=== PATIENT | male | born 1975 | race Caucasian/White ===

== ENCOUNTER 2019-08-06 21:08 | Emergency (ER) | payer OTHER ==
[~2019-08-06] VITALS: Ht 177 cm; Wt 92.1 kg
[2019-08-06] MEDS ORDERED: NS IV 1000 ML 1,000 ML IV STA (21:36)
[2019-08-06] MEDS ORDERED: KETOROLAC 30 MG/ML VIAL IVP STA (21:36)
[2019-08-06] MEDS ORDERED: METOCLOPRAMIDE INJ 10 MG/2 ML (REGLAN) IVP STA (21:36)
--- NOTE | 2019-08-06 21:45 | ED Back Pain ---
General Chief Complaint: Back Problems Stated Complaint: PAIN LEFT ABD Nursing Triage Note: PT COMPLAINING OF LEFT FLANK PAIN SINCE 3PM TODAY. PT HAS A HX OF KIDNEY STONES Nursing Sepsis Screen: No Definite Risk History of Present Illness Date Seen by Provider: Aug 06, 2019 Time Seen by Provider: 21:25 Initial Comments 43-year-old male presents with left-sided flank pain since around 3:00 today. Patient reports she had a similar episode about a week ago and thought he had passed a kidney stone. Patient reports she has a history of kidney stones and the pain is very similar. He has some mild nausea. Patient denies any fever, chills. He has not tried anything for the pain today he does not have any abdominal pain, vomiting, chest pain or burning with urination. Allergies and Home Medications Allergies Coded Allergies: No Known Drug Allergies (Unverified , 08/06/19) Patient Home Medication List Home Medication List Reviewed: Yes Review of Systems Constitutional: No chills, No dizziness, No fever EENTM: no symptoms reported Respiratory: No cough, No short of breath Cardiovascular: No chest pain, No palpitations Gastrointestinal: No abdominal pain, No diarrhea, No vomiting Genitourinary: see HPI Musculoskeletal: see HPI Skin: no symptoms reported Past [id number] Hx Past Med/Social Hx: Reviewed Nursing Past Med/Soc Hx Patient Social History Alcohol Use: Denies Use Recreational Drug Use: No Smoking Status: Former Smoker Former Smoker, Quit: Mar 06, 2019 2nd Hand Smoke Exposure: No Recent Foreign Travel: No Contact w/Someone Who Travel: No Recent Infectious Disease Expo: No Recent Hopitalizations: No Physical Abuse: No Sexual Abuse: No Mistreated: No Fear: No Past Medical History Surgeries: No Respiratory: No Cardiac: Yes Hypertension Neurological: No Genitourinary: No Gastrointestinal: No Musculoskeletal: No Endocrine: No HEENT: No Cancer: No Psychosocial: No Integumentary: No Blood Disorders: No Physical Exam Vital Signs Vital Signs - First Documented 08/06/19 21:14 Temp 36.9 Pulse 87 Resp 18 B/P (MAP) 189/118 (141) Pulse Ox 98 O2 Delivery Room Air Capillary Refill : Less Than 3 Seconds Height, Weight, BMI Height: '" Weight: lbs. oz. 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 Norm as Tested Progress/Results/Core Measures Results/Orders Lab Results Laboratory Tests Test 08/06/19 21:30 08/06/19 22:20 Range/Units Urine Color YELLOW Urine Clarity CLEAR Urine pH 6.5 5-9 Urine Specific [place] <1.005 1.016-1.022 Urine Protein NEGATIVE NEGATIVE Urine Glucose (UA) NEGATIVE NEGATIVE Urine Ketones NEGATIVE NEGATIVE Urine Nitrite NEGATIVE NEGATIVE Urine Bilirubin NEGATIVE NEGATIVE Urine Urobilinogen 0.2 < = 1.0 MG/DL Urine Leukocyte Esterase NEGATIVE NEGATIVE Urine RBC (Auto) 2+ H NEGATIVE Urine RBC 5-10 H /HPF Urine WBC RARE /HPF Urine Squamous Epithelial Cells 0-2 /HPF Urine Crystals NONE /LPF Urine Bacteria NONE /HPF Urine Casts NONE /LPF Urine Mucus NEGATIVE /LPF Urine Culture Indicated NO White Blood Count 15.0 H 4.3-11.0 10^3/uL Red Blood Count 4.90 4.35-5.85 10^6/uL Hemoglobin 14.8 13.3-17.7 G/DL Hematocrit 43 40-54 % Mean Corpuscular Volume 88 80-99 FL Mean Corpuscular Hemoglobin 30 25-34 PG Mean Corpuscular Hemoglobin Concent 34 32-36 G/DL Red Cell Distribution Width 13.6 10.0-14.5 % Platelet Count 310 130-400 10^3/uL Mean Platelet Volume 10.0 7.4-10.4 FL Neutrophils (%) (Auto) 80 H 42-75 % Lymphocytes (%) (Auto) 13 12-44 % Monocytes (%) (Auto) 6 0-12 % Eosinophils (%) (Auto) 1 0-10 % Basophils (%) (Auto) 0 0-10 % Neutrophils # (Auto) 12.0 H 1.8-7.8 X 10^3 Lymphocytes # (Auto) 1.9 1.0-4.0 X 10^3 Monocytes # (Auto) 0.8 0.0-1.0 X 10^3 Eosinophils # (Auto) 0.1 0.0-0.3 10^3/uL Basophils # (Auto) 0.1 0.0-0.1 10^3/uL Neutrophils % (Manual) 79 % Lymphocytes % (Manual) 11 % Monocytes % (Manual) 7 % Eosinophils % (Manual) 1 % Basophils % (Manual) 0 % Band Neutrophils 2 % Blood Morphology Comment NORMAL Sodium Level 136 135-145 MMOL/L Potassium Level 3.7 3.6-5.0 MMOL/L Chloride Level 104 98-107 MMOL/L Carbon Dioxide Level 21 21-32 MMOL/L Anion Gap 11 5-14 MMOL/L Blood Urea Nitrogen 10 7-18 MG/DL Creatinine 0.93 0.60-1.30 MG/DL Estimat Glomerular Filtration Rate > 60 BUN/Creatinine Ratio 11 Glucose Level 112 H 70-105 MG/DL Calcium Level 9.2 8.5-10.1 MG/DL Corrected Calcium 9.0 8.5-10.1 MG/DL Total Bilirubin 0.3 0.1-1.0 MG/DL Aspartate Amino Transf (AST/SGOT) 14 5-34 U/L Alanine Aminotransferase (ALT/SGPT) 13 0-55 U/L Alkaline Phosphatase 67 40-136 U/L Total Protein 7.0 6.4-8.2 GM/DL Albumin 4.2 3.2-4.5 GM/DL My Orders Orders - RICKETTS,DREA L DO Abdomen (Kub) 1 View (08/06/19 21:36) Ed Iv/Invasive Line Start (08/06/19 21:36) Ketorolac Injection (Toradol Injection) (08/06/19 21:36) Cbc With Automated Diff (08/06/19 21:36) Comprehensive Metabolic Panel (08/06/19 21:36) Ua Culture If Indicated (08/06/19 21:36) Metoclopramide Injection (Reglan Injecti (08/06/19 21:36) Ns Iv 1000 Ml (Sodium Chloride 0.9%) (08/06/19 21:36) Manual Differential (08/06/19 22:20) Ct Abdomen/Pelvis W (08/06/19 22:38) Iohexol Injection (Omnipaque 350 Mg/Ml 1 (08/06/19 22:45) Received Contrast (Hold Metformin- Contr (08/06/19 22:45) Ns (Ivpb) (Sodium Chloride 0.9% Ivpb Bag (08/06/19 22:45) Sodium Chloride Flush (Catheter Flush Sy (08/06/19 22:45) Medications Given in ED Current Medications Medications Dose Ordered Sig/Ender Route Start Time Stop Time Status Last Admin Dose Admin Iohexol 100 ml ONCE ONCE IV 08/06/19 22:45 08/06/19 22:46 DC 08/06/19 23:10 100 ML Sodium Chloride 10 ml NEEDED PRN IV 08/06/19 22:45 08/06/19 23:10 10 ML Sodium Chloride 100 ml ONCE ONCE IV 08/06/19 22:45 08/06/19 22:46 DC 08/06/19 23:10 80 ML Vital Signs/I&O 08/06/19 21:14 Temp 36.9 Pulse 87 Resp 18 B/P (MAP) 189/118 (141) Pulse Ox 98 O2 Delivery Room Air Blood Pressure Mean: 141 POS Departure Impression Primary Impression: Kidney stone on left side Disposition: HOME, SELF-CARE Condition: Stable Departure-Patient Inst. Patient Instructions: Renal Colic (DC), How to Strain Your Urine, Kidney Stones in Adults Add. Discharge Instructions: follow up with urologist for further treatment, recheck of symptoms All discharge instructions reviewed with patient and/or family. Voiced understanding. DREA RICKETTS DO Aug 06, 2019 21:44 POS
[2019-08-06 21:48] LABS: BILIRUBIN,URINE NEGATIVE (NEGATIVE); CLARITY,URINE CLEAR; COLOR,URINE YELLOW; GLUCOSE, URINE (UA) NEGATIVE (NEGATIVE); KETONES,URINE NEGATIVE (NEGATIVE); LEUKOCYTE ESTERASE ,URINE NEGATIVE (NEGATIVE); NITRITE,URINE NEGATIVE (NEGATIVE); PH,URINE 6.5 (5-9); PROTEIN,URINE NEGATIVE (NEGATIVE); SQUAMOUS EPITHELIAL CELL,UR 0-2 /HPF; WBC,URINE RARE /HPF
--- NOTE | 2019-08-06 22:02 | Diagnostic Imaging Report ---
EXAMINATION: Abdominal radiographs, single view, 2 images. DATE: August 06, 2019. CLINICAL INDICATION: 43-year-old male, left flank pain. History of stones. COMPARISON: None available. COMMENTS: There is a calcification overlying the left kidney likely relating to a renal stone measuring 7 mm in size. There is no identified abnormal calcification projecting over the expected positions of the ureters. The upper abdomen is not completely imaged. There is no identified abnormally distended gas-filled segment of bowel. IMPRESSION: 1. 7 mm probable left renal stone. 2. No radiographically apparent ureteral stone. 3. Unremarkable bowel gas pattern. 4. The upper abdomen is incompletely imaged. Dictated by: Dictated on workstation # [id number]
[2019-08-06 22:31] LABS: HEMATOCRIT 43 % (40-54); HEMOGLOBIN 14.8 G/DL (13.3-17.7); MEAN CORPUSCULAR HEMOGLOBIN 30 PG (25-34); MEAN CORPUSCULAR HGB CONC 34 G/DL (32-36); MEAN CORPUSCULAR VOLUME 88 FL (80-99); PLATELET COUNT 310 10^3/uL (130-400); RED CELL DISTRIBUTION WIDTH 13.6 % (10.0-14.5)
[2019-08-06 22:32] LABS: BASOPHILS # (AUTO) 0.1 10^3/uL (0.0-0.1); BASOPHILS % (AUTO) 0 % (0-10); EOSINOPHILS # (AUTO) 0.1 10^3/uL (0.0-0.3); EOSINOPHILS % (AUTO) 1 % (0-10); LYMPHOCYTES # (AUTO) 1.9 X 10^3 (1.0-4.0); LYMPHOCYTES % (AUTO) 13 % (12-44); MONOCYTES # (AUTO) 0.8 X 10^3 (0.0-1.0); MONOCYTES % (AUTO) 6 % (0-12); NEUTROPHILS % (AUTO) 80 % (42-75)
[2019-08-06] MEDS ORDERED: NS 100 ML (IVPB) BAG IV ONE (22:45)
[2019-08-06] MEDS ORDERED: IOHEXOL 350 MG/ML 100 ML (OMNIPAQUE 350) VIAL IV ONE (22:45)
[2019-08-06] MEDS ORDERED: CATHETER FLUSH 10 ML SYR IV PRN (22:45)
[2019-08-06] MEDS ORDERED: HOLD METFORMIN - RECEIVED CONTRAST 20 ML VIAL IV SCH (22:45)
[2019-08-06 22:47] LABS: ALANINE AMINOTRANSFERASE 13 U/L (0-55); ALBUMIN 4.2 GM/DL (3.2-4.5); ALKALINE PHOSPHATASE 67 U/L (40-136); BILIRUBIN,TOTAL 0.3 MG/DL (0.1-1.0); BUN/CREATININE RATIO 11; CALCIUM 9.2 MG/DL (8.5-10.1); CARBON DIOXIDE 21 MMOL/L (21-32); CHLORIDE 104 MMOL/L (98-107); CREATININE SERUM 0.93 MG/DL (0.60-1.30); GFR ESTIMATED > 60; GLUCOSE 112 MG/DL (70-105); POTASSIUM 3.7 MMOL/L (3.6-5.0); SODIUM 136 MMOL/L (135-145)
[2019-08-06 22:48] LABS: BAND NEUTROPHILS 2 %; BASOPHILS % (MANUAL) 0 %; EOSINOPHILS % (MANUAL) 1 %; LYMPHOCYTES % (MANUAL) 11 %; MONOCYTES % (MANUAL) 7 %; NEUTROPHILS % (MANUAL) 79 %
[2019-08-06 22:49] LABS: RBC MORPH NORMAL
[2019-08-07 00:38] VITALS: BP 155/95
--- NOTE | 2019-08-07 06:34 | Diagnostic Imaging Report ---
PROCEDURE: CT abdomen and pelvis with contrast. TECHNIQUE: Multiple contiguous axial images were obtained through the abdomen and pelvis after administration of intravenous contrast. Auto Exposure Controls were utilized during the CT exam to meet ALARA standards for radiation dose reduction. INDICATION: Left-sided flank pain. COMPARISON: Abdominal radiograph 08/06/2019 FINDINGS: Lung bases are clear. Subcentimeter fluid attenuation cysts versus benign hemangiomas in the liver. No hepatic steatosis. The gallbladder, pancreas, spleen and adrenal glands are negative. 6 mm renal stone in the upper left renal pelvis obstructs a couple of the upper calyces. Simple cysts in both kidneys. No ureteral stones. The partially opacified bladder is unremarkable. Negative appendix. No free intraperitoneal air or fluid. No lymphadenopathy. Mild colonic diverticulosis without diverticulitis. No evidence of bowel obstruction. No acute osseous findings. IMPRESSION: 1. 6 mm renal stone in the upper left renal pelvis obstructing a few calyces. No ureteral stones. 2. Mild colonic diverticulosis without evidence of active diverticulitis. Dictated by: Dictated on workstation # [id number]
== END 2019-08-07 00:38 | disposition home or self-care (01) ==
LOC: ER FS 21:11
DX: N20.0 Calculus of kidney (principal); I10 Essential (primary) hypertension; Z87.891 Personal history of nicotine dependence
CPT/HCPCS: 36415; 74018; 74177; 80053; 81000; 85007; 85027; 96361; 96374; 96375